=== PATIENT | female | born 1945 | race Caucasian/White ===

== ENCOUNTER 2017-07-06 11:43 | Emergency (ER) | payer OTHER ==
--- OUTSIDE RECORDS SUMMARY | 2017-07-06 11:46 | XMS REPORT ---
:1945 [facility] Address [address] [place] [address] [address]. [address] [place] [address] Care Team Providers Name Role Phone HARRIS BARRERA Unavailable Unavailable Problems This patient has no known problems. Allergies, Adverse Reactions, Alerts This patient has no known allergies or adverse reactions. Medications This patient has no known medications. Results Test Description Test Time Test Comments Text Results Atomic Results Result Comments CULTURE, BLOOD 2016-10-15 06:04:00 er 8 Specimen: BloodCollected: 2016 15:28 Status: Final Last Updated: 10/15/2016 06:04 (1) er 8 Culture Result (Final) (Final) No Growth After 5 Days CULTURE, BLOOD 2016-10-15 06:04:00 er 8 Specimen: BloodCollected: 2016 15:20 Status: Final Last Updated: 10/15/2016 06:04 (1) er 8 Culture Result (Final) (Final) No Growth After 5 Days CULTURE, URINE 2016-10-13 07:13:00 Specimen: Urine SpecimensCollected: 10/10/2016 12:21 Status: Final Last Updated: 10/13/2016 07:13 Culture Result (Final) (Final) No Growth After 48 Hours POTASSIUM 2016-10-12 13:56:00 Test Item Value Reference Range Comments Potassium (test code=K) 4.3 mmol/l 3.5-5.0 [id number] 13:56:00 Test Item Value Reference Range Comments Magnesium (test code=MG) 1.6 mg/dl 1.6-2.3 [id number] 05:45:00 Test Item Value Reference Range Comments Magnesium (test code=MG) 1.4 mg/dl 1.6-2.3 CBC WITH AUTO [id number] 05:40:00 Test Item Value Reference Range Comments WBC (test code=WBC) 9.37 10\\S\\3/ul 4.80-10.80 RBC (test code=RBC) 3.71 10\\S\\6/ul 4.20-5.40 Hemoglobin (test code=HGB) 11.3 gm/dl 12.0-14.0 Hematocrit (test code=HCT) 34.9 % 37.0-47.0 MCV (test code=MCV) 94.1 fL 81.0-99.0 MCH (test code=MCH) 30.5 pg 27.0-31.0 MCHC (test code=MCHC) 32.4 gm/dl 33.0-37.0 RDW (test code=RDWVC) 14.2 % 11.5-14.5 Platelet (test code=PLT) 172 10\\S\\3/ul 130-400 MPV (test code=MPV) 11.9 fL 7.4-10.4 "NOT MEASURED" RESULTS ARE DISPLAYED WHEN THE INSTRUMENT HAS A SUPPRESSED OR UNREPORTABLE RESULT. THIS WILL MOST OFTEN HAPPEN WITH THE MPV WHEN THERE IS AN ABNORMAL PLATLET DISTRIBUTION DUE TO A CRITICAL LOW VALUE OR PLATELET CLUMPING. NE% (test code=NE) 57.7 % 42.0-75.0 LY% (test code=LY) 25.5 % 13.0-42.0 MO% (test code=MO) 14.1 % 4.0-14.0 EO% (test code=EO) 1.8 % 1.0-3.0 BA% (test code=BA) 0.3 % 1.0-3.0 IG% (test code=IG%) 0.6 % 0.0-0.4 CBC AUTO [id number] 05:32:00 Test Item Value Reference Range Comments Glucose (test code=GLU) 144 mg/dl 75-110 BUN (test code=BUN) 11.0 mg/dl 6.0-17.0 Creatinine (test 1.2 mg/dl 0.4-1.2 code=CREA) Sodium (test code=NA) 144 mmol/l 137-145 Potassium (test code=K) 2.9 mmol/l 3.5-5.0 Chloride (test code=CL) 104 mmol/l 98-107 CO2 (test code=CO2) 29 mmol/l 22-30 Calcium (test code=CALC) 7.6 mg/dl 8.4-10.2 T Protein (test code=TP) 6.0 gm/dl 5.1-8.7 Albumin (test code=ALB) 3.2 gm/dl 3.5-4.6 A/G Ratio (test 1.1 % 1.1-2.2 code=AGRAT) AST (SGOT) (test 33 U/L 11-36 code=AST) ALT (SGPT) (test 36 U/L 11-40 code=ALT) Alkaline Phos (test 67 U/L 47-114 code=ALKP) Total Bilirubin (test 1.0 mg/dl 0.2-1.2 code=TBIL) Globulin (test 2.8 gm/dl 2.3-3.5 code=GLOBU) Calcium, Corrected (test 8.2 mg/dl 8.4-10.2 Various formulas exist for code=CALCCORR) corrected serum calcium results, each yielding different values. This corrected result was based on the formula: Corrected Calcium=SerumCalcium + [0.8 * ( 4 - SerumAlbumin)] EGFR if 57 (test code=EGFRAA) mL/min/1.73m\\S\\2 EGFR if Non- 47 Estimated Glomerular [place] (test mL/min/1.73m\\S\\2 Filtration Rate (eGFR) code=EGFRNA) Reference Intervals Decision Points for 18 years and older and average body mass: >=60 Does not exclude kidney disease. 30 - 59 Suggests moderate chronic kidney disease and indicates the need for further investigation including assessment of proteinuria and cardiovascular factors. < 30 Usually indicates a need for referral for assessment and management of chronic kidney failure. Critical values were called to harsha tian by [id number] on 10/12/2016 05:32 AM. Results were read back by harsha tian.[id number] 04:44:00 Test Item Value Reference Range Comments Glucose (test code=GLU) 127 mg/dl 75-110 BUN (test code=BUN) 17.0 mg/dl 6.0-17.0 Creatinine (test 1.6 mg/dl 0.4-1.2 code=CREA) Sodium (test code=NA) 149 mmol/l 137-145 Potassium (test code=K) 4.0 mmol/l 3.5-5.0 Chloride (test code=CL) 106 mmol/l 98-107 CO2 (test code=CO2) 32 mmol/l 22-30 Calcium (test code=CALC) 8.2 mg/dl 8.4-10.2 T Protein (test code=TP) 6.6 gm/dl 5.1-8.7 Albumin (test code=ALB) 3.4 gm/dl 3.5-4.6 A/G Ratio (test 1.1 % 1.1-2.2 code=AGRAT) AST (SGOT) (test 31 U/L 11-36 code=AST) ALT (SGPT) (test 35 U/L 11-40 code=ALT) Alkaline Phos (test 69 U/L 47-114 code=ALKP) Total Bilirubin (test 0.8 mg/dl 0.2-1.2 code=TBIL) Globulin (test 3.2 gm/dl 2.3-3.5 code=GLOBU) Calcium, Corrected (test 8.7 mg/dl 8.4-10.2 Various formulas exist for code=CALCCORR) corrected serum calcium results, each yielding different values. This corrected result was based on the formula: Corrected Calcium=SerumCalcium + [0.8 * ( 4 - SerumAlbumin)] EGFR if 41 (test code=EGFRAA) mL/min/1.73m\\S\\2 EGFR if Non- 34 Estimated Glomerular [place] (test mL/min/1.73m\\S\\2 Filtration Rate (eGFR) code=EGFRNA) Reference Intervals Decision Points for 18 years and older and average body mass: >=60 Does not exclude kidney disease. 30 - 59 Suggests moderate chronic kidney disease and indicates the need for further investigation including assessment of proteinuria and cardiovascular factors. < 30 Usually indicates a need for referral for assessment and management of chronic kidney failure. CBC WITH AUTO [id number] 04:38:00 Test Item Value Reference Range Comments WBC (test code=WBC) 11.63 10\\S\\3/ul 4.80-10.80 RBC (test code=RBC) 3.94 10\\S\\6/ul 4.20-5.40 Hemoglobin (test code=HGB) 11.8 gm/dl 12.0-14.0 Hematocrit (test code=HCT) 38.0 % 37.0-47.0 MCV (test code=MCV) 96.4 fL 81.0-99.0 MCH (test code=MCH) 29.9 pg 27.0-31.0 MCHC (test code=MCHC) 31.1 gm/dl 33.0-37.0 RDW (test code=RDWVC) 14.4 % 11.5-14.5 Platelet (test code=PLT) 221 10\\S\\3/ul 130-400 MPV (test code=MPV) 11.8 fL 7.4-10.4 "NOT MEASURED" RESULTS ARE DISPLAYED WHEN THE INSTRUMENT HAS A SUPPRESSED OR UNREPORTABLE RESULT. THIS WILL MOST OFTEN HAPPEN WITH THE MPV WHEN THERE IS AN ABNORMAL PLATLET DISTRIBUTION DUE TO A CRITICAL LOW VALUE OR PLATELET CLUMPING. NE% (test code=NE) 67.1 % 42.0-75.0 LY% (test code=LY) 17.9 % 13.0-42.0 MO% (test code=MO) 11.3 % 4.0-14.0 EO% (test code=EO) 3.0 % 1.0-3.0 BA% (test code=BA) 0.3 % 1.0-3.0 IG% (test code=IG%) 0.4 % 0.0-0.4 CBC AUTO [id number] 06:41:00 Test Item Value Reference Range Comments Glucose (test code=GLU) 108 mg/dl 75-110 BUN (test code=BUN) 18.0 mg/dl 6.0-17.0 Creatinine (test 1.5 mg/dl 0.4-1.2 code=CREA) Sodium (test code=NA) 148 mmol/l 137-145 Potassium (test code=K) 3.5 mmol/l 3.5-5.0 Chloride (test code=CL) 106 mmol/l 98-107 CO2 (test code=CO2) 32 mmol/l 22-30 Calcium (test code=CALC) 9.3 mg/dl 8.4-10.2 T Protein (test code=TP) 6.3 gm/dl 5.1-8.7 Albumin (test code=ALB) 3.3 gm/dl 3.5-4.6 A/G Ratio (test 1.1 % 1.1-2.2 code=AGRAT) AST (SGOT) (test 35 U/L 11-36 code=AST) ALT (SGPT) (test 38 U/L 11-40 code=ALT) Alkaline Phos (test 62 U/L 47-114 code=ALKP) Total Bilirubin (test 0.8 mg/dl 0.2-1.2 code=TBIL) Globulin (test 3.0 gm/dl 2.3-3.5 code=GLOBU) Calcium, Corrected (test 9.9 mg/dl 8.4-10.2 Various formulas exist for code=CALCCORR) corrected serum calcium results, each yielding different values. This corrected result was based on the formula: Corrected Calcium=SerumCalcium + [0.8 * ( 4 - SerumAlbumin)] EGFR if 44 (test code=EGFRAA) mL/min/1.73m\\S\\2 EGFR if Non- 36 Estimated Glomerular [place] (test mL/min/1.73m\\S\\2 Filtration Rate (eGFR) code=EGFRNA) Reference Intervals Decision Points for 18 years and older and average body mass: >=60 Does not exclude kidney disease. 30 - 59 Suggests moderate chronic kidney disease and indicates the need for further investigation including assessment of proteinuria and cardiovascular factors. < 30 Usually indicates a need for referral for assessment and management of chronic kidney failure. CBC WITH AUTO [id number] 06:03:00 Test Item Value Reference Range Comments WBC (test code=WBC) 10.34 10\\S\\3/ul 4.80-10.80 RBC (test code=RBC) 3.82 10\\S\\6/ul 4.20-5.40 Hemoglobin (test code=HGB) 11.5 gm/dl 12.0-14.0 Hematocrit (test code=HCT) 36.5 % 37.0-47.0 MCV (test code=MCV) 95.5 fL 81.0-99.0 MCH (test code=MCH) 30.1 pg 27.0-31.0 MCHC (test code=MCHC) 31.5 gm/dl 33.0-37.0 RDW (test code=RDWVC) 14.5 % 11.5-14.5 Platelet (test code=PLT) 234 10\\S\\3/ul 130-400 MPV (test code=MPV) 12.0 fL 7.4-10.4 "NOT MEASURED" RESULTS ARE DISPLAYED WHEN THE INSTRUMENT HAS A SUPPRESSED OR UNREPORTABLE RESULT. THIS WILL MOST OFTEN HAPPEN WITH THE MPV WHEN THERE IS AN ABNORMAL PLATLET DISTRIBUTION DUE TO A CRITICAL LOW VALUE OR PLATELET CLUMPING. NE% (test code=NE) 48.6 % 42.0-75.0 LY% (test code=LY) 34.7 % 13.0-42.0 MO% (test code=MO) 11.3 % 4.0-14.0 EO% (test code=EO) 4.4 % 1.0-3.0 BA% (test code=BA) 0.5 % 1.0-3.0 IG% (test code=IG%) 0.5 % 0.0-0.4 URINALYSIS WITH [id number] 14:11:00 Test Item Value Reference Range Comments Color (test code=UCOLR) YELLOW Clarity (test code=UCLAR) CLOUDY Glucose (test code=UGLUC) NEGATIVE NEGATIVE Bilirubin (test code=UBILI) NEGATIVE NEGATIVE Ketones (test code=UKET) NEGATIVE NEGATIVE Specific [place] (test code=USPGR) 1.020 1.005-1.030 Blood (test code=UBLD) LARGE NEGATIVE PH (test code=UPH) 7.0 4.5-8.0 Protein (test code=UPROT) 100 NEGATIVE Urobilinogen (test code=U UROB) 0.2 >0.2 Nitrite (test code=UNITR) NEGATIVE NEGATIVE Leukocyte Esterase (test code=ULEUK) LARGE NEGATIVE WBC (test code=WBCUR) 20-30 0-5 RBC (test code=RBCUR) TNTC 0-5 Epithial Cells (test code=U EPI) 40-50 0-10 Bacteria (test code=UBACT) 2+ None Seen,Trace er [id number] 13:36:00 Test Item Value Reference Range Comments Glucose (test code=GLU) 153 mg/dl 75-110 BUN (test code=BUN) 19.0 mg/dl 6.0-17.0 Creatinine (test 1.5 mg/dl 0.4-1.2 code=CREA) Sodium (test code=NA) 145 mmol/l 137-145 Potassium (test code=K) 3.2 mmol/l 3.5-5.0 Chloride (test code=CL) 104 mmol/l 98-107 CO2 (test code=CO2) 25 mmol/l 22-30 Calcium (test code=CALC) 10.5 mg/dl 8.4-10.2 T Protein (test code=TP) 7.6 gm/dl 5.1-8.7 Albumin (test code=ALB) 4.1 gm/dl 3.5-4.6 A/G Ratio (test 1.2 % 1.1-2.2 code=AGRAT) AST (SGOT) (test 43 U/L 11-36 code=AST) ALT (SGPT) (test 40 U/L 11-40 code=ALT) Alkaline Phos (test 82 U/L 47-114 code=ALKP) Total Bilirubin (test 1.3 mg/dl 0.2-1.2 code=TBIL) Globulin (test 3.5 gm/dl 2.3-3.5 code=GLOBU) Calcium, Corrected (test 10.4 mg/dl 8.4-10.2 Various formulas exist for code=CALCCORR) corrected serum calcium results, each yielding different values. This corrected result was based on the formula: Corrected Calcium=SerumCalcium + [0.8 * ( 4 - SerumAlbumin)] EGFR if 44 (test code=EGFRAA) mL/min/1.73m\\S\\2 EGFR if Non- 36 Estimated Glomerular [place] (test mL/min/1.73m\\S\\2 Filtration Rate (eGFR) code=EGFRNA) Reference Intervals Decision Points for 18 years and older and average body mass: >=60 Does not exclude kidney disease. 30 - 59 Suggests moderate chronic kidney disease and indicates the need for further investigation including assessment of proteinuria and cardiovascular factors. < 30 Usually indicates a need for referral for assessment and management of chronic kidney failure. er 8CBC WITH AUTO [id number] 13:20:00 Test Item Value Reference Range Comments WBC (test code=WBC) 12.64 10\\S\\3/ul 4.80-10.80 RBC (test code=RBC) 4.14 10\\S\\6/ul 4.20-5.40 Hemoglobin (test code=HGB) 12.5 gm/dl 12.0-14.0 Hematocrit (test code=HCT) 38.3 % 37.0-47.0 MCV (test code=MCV) 92.5 fL 81.0-99.0 MCH (test code=MCH) 30.2 pg 27.0-31.0 MCHC (test code=MCHC) 32.6 gm/dl 33.0-37.0 RDW (test code=RDWVC) 14.2 % 11.5-14.5 Platelet (test code=PLT) 261 10\\S\\3/ul 130-400 MPV (test code=MPV) 12.4 fL 7.4-10.4 "NOT MEASURED" RESULTS ARE DISPLAYED WHEN THE INSTRUMENT HAS A SUPPRESSED OR UNREPORTABLE RESULT. THIS WILL MOST OFTEN HAPPEN WITH THE MPV WHEN THERE IS AN ABNORMAL PLATLET DISTRIBUTION DUE TO A CRITICAL LOW VALUE OR PLATELET CLUMPING. NE% (test code=NE) 72.4 % 42.0-75.0 LY% (test code=LY) 18.1 % 13.0-42.0 MO% (test code=MO) 7.4 % 4.0-14.0 EO% (test code=EO) 1.1 % 1.0-3.0 BA% (test code=BA) 0.5 % 1.0-3.0 IG% (test code=IG%) 0.5 % 0.0-0.4 er 8
[2017-07-06] MEDS ORDERED: ONDANSETRON 4 MG/2 ML VIAL ONE (12:52)
[2017-07-06] MEDS ORDERED: NA CHLORIDE 0.9% 1,000 ML ONE (12:52)
[2017-07-06 12:59] LABS: Absolute Lymphocytes (CBC) 2.8 K/uL (0.7-4.9); Absolute Monocytes 1.1 K/uL (0.1-1.3); Absolute Neutrophil 7.2 K/uL (1.8-8.0); Basophils % 0.6 % (0-1.3); Eosinophils % 1.8 % (0-4.4); Hematocrit 38.6 % (36.0-45.0); Lymphocytes % 24.9 % (15.3-44.8); MCH 29.5 pg (27.0-35.0); MCV 90.6 fL (80-100); MPV 8.7 fL (7.6-11.3); Monocytes % 9.4 % (3.3-12.3); RBC Red Blood Cell Count 4.26 M/uL (3.86-4.86)
--- NOTE | 2017-07-06 13:05 | RAD REPORT ---
EXAM DESCRIPTION: RAD - Knee Left 3 View - 07/06/2017 12:35 pm CLINICAL HISTORY: Left knee pain FINDINGS: There probably is small joint effusion. The bones are osteoporotic. 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 The patellofemoral compartment is involved. There is an equivocal vague a density withi the intercondylar notch. This may represent a loose body of indeterminate age. If the patient has clinical symptoms to suggest an occult fracture, ligamentous or meniscal injury th en MRI would be recommended
[2017-07-06 13:08] LABS: Albumin 3.3 g/dL (3.2-5.5); Bilirubin Direct 0.2 mg/dL (0-0.2); Bilirubin Total 1.2 mg/dL (0.3-1.2); Protein, Total 7.7 g/dL (6.0-8.3)
[2017-07-06 13:08] LABS: Urine Blood 1+ (NEG); Urine Glucose NEGATIVE (NEG); Urine Protein 2+ (NEG); Urine Specific Gravity 1.025 (1.005-1.030)
[2017-07-06 13:08] LABS: Urine RBC <5 /HPF (NONE SEEN)
[2017-07-06 13:09] LABS: Urine Bacteria >50 /HPF (<20); Urine Culture Reflex Order REFLEXED; Urine Mucus 1+ /HPF (NONE SEEN)
--- NOTE | 2017-07-06 13:31 | RAD REPORT ---
EXAM DESCRIPTION: CT - Stone Protocol - 07/06/2017 1:17 pm CLINICAL HISTORY: Abdominal pain, flank pain COMPARISON: CT study July 2016 TECHNIQUE: Axial 5 mm thick images were obtained without oral or IV contrast. The [id number] span s the entirety of the system including uppermost abdomen and lung bases. All CT scans are performed using dose optimization technique as appropriate and may include automated exposure control or mA/KV adjustment according to patient size. FINDINGS: No hydronephrosis present. No obstructing calculi identifiable. Both kidneys show multiple 2-5 mm nonobstructing caliceal calculi. In the anterior mid right kidney a 2.3 centimeter oval low-d ensity mass is present matching up with a cyst seen on the prior study. No suspicious renal masses. I sodense masses and pyelonephritis are not excluded on a stone protocol CT scan. Urinary bladder is co ntracted limiting assessment. Bladder calculi not suspected. Uterus and ovaries show no suspicious fi ndings. Liver is abnormal in appearance with a prominent nodular contour. No focal liver lesions seen on nonc ontrast imaging. This serosa is or diffuse hepatic parenchymal disease pattern is similar to the July 2016 study. No spleen or pancreas acute finding. Cholecystectomy clips are present. No biliary tree dilatation. No significant adrenal finding. No acute bowel findings. No appendicitis. No hernia, mass or bulky lymphadenopathy noted. No free air, free fluid or inflammatory stranding. Disc and bony degenerative changes are present. No pathologic bone process seen. Old rib trauma noted posterior lower right ribcage. IMPRESSION: No hydronephrosis or obstructing calculus. No acute finding identifiable. Patient has bilateral lung nonobstructing calculi. Isodense masses and pyelonephritis are not excluded on stone protocol technique. Cirrhosis or diffuse hepatic parenchymal disease changes to the liver. No focal liver lesions seen on noncontrast imaging.
[2017-07-06] MEDS ORDERED: POTASSIUM CL SA 10 MEQ TAB PO ONE (14:04)
--- NOTE | 2017-07-06 14:11 | EDPHYS ---
Physician Documentation [facility] Name: Betzaida Qureshi Age: 71 yrs Sex: Female : 1945 Arrival Date: 07/06/2017 Time: 11:46 Bed 14 Private MD: Tyrone Medina ED Physician Edgardo Matt HPI: 07/06 11:59 This 71 yrs old Female presents to ER via Wheelchair with complaints of Knee kav swelling. 12:18 The patient presents with pain, that is acute, swelling. The complaints affect the left kav knee. Context: The problem was sustained at an unknown site, resulted from an unknown cause, the patient can partially bear weight. Onset: The symptoms/episode began/occurred acutely, 3 day(s) ago. Modifying factors: The symptoms are alleviated by nothing. the symptoms are aggravated by movement. Associated signs and symptoms: Pertinent positives: swelling, of the left leg and left knee, Pertinent negatives calf tenderness, numbness, tingling, warmth, weakness. Treatment prior to arrival includes: no previous treatment. Severity of symptoms: At their worst the symptoms were moderate, just prior to arrival. The patient has not experienced similar symptoms in the past. The patient has been recently seen by a physician: the patient's primary care provider. patient c/o acute onset of left knee pain from an unknown cause. reports using a cane at home to ambulate. also c/o bilateral flank pain x 3 days. pmhx: kidney stones. Historical: - Allergies: 11:54 PENICILLINS; aj 11:54 Tetanus Vaccines \T\ Toxoid; aj 11:54 Tracy; aj - Home Meds: 11:54 amlodipine 10 mg tab 1 tab once daily [Active]; metoprolol tartrate 50 mg Oral tab once aj daily [Active]; gabapentin 300 mg oral cap 1 cap 3 times per day [Active]; glipizide 5 mg Oral tab 1 tab once daily [Active]; lovastatin 40 mg Oral tab 1 tab once daily [Active]; losartan 100 mg oral tab 1 tab once daily [Active]; - PMHx: 11:54 Hyperlipidemia; Diabetes - NIDDM; aj - Immunization history:: Adult Immunizations up to date. - Social history:: Smoking status: Patient/guardian denies using tobacco. - Family history:: not pertinent. - Ebola Screening: : No symptoms or risks identified at this time. - Hospitalizations: : No recent hospitalization is reported. - History obtained from: . ROS: 12:18 Constitutional: Negative for fever, chills, and weight loss, Eyes: Negative for injury, kav pain, redness, and discharge, ENT: Negative for injury, pain, and discharge, Neck: Negative for injury, pain, and swelling, Cardiovascular: Negative for chest pain, palpitations, and edema, Respiratory: Negative for shortness of breath, cough, wheezing, and pleuritic chest pain, Abdomen/GI: Negative for abdominal pain, nausea, vomiting, diarrhea, and constipation, Back: Negative for injury and pain, Skin: Negative for injury, rash, and discoloration, Neuro: Negative for headache, weakness, numbness, tingling, and seizure, Psych: Negative for depression, anxiety, suicide ideation, homicidal ideation, and hallucinations, Allergy/Immunology: Negative for hives, rash, and allergies, Endocrine: Negative for neck swelling, polydipsia, polyuria, polyphagia, and marked weight changes, Hematologic/Lymphatic: Negative for swollen nodes, abnormal bleeding, and unusual bruising. 12:18 : Positive for flank pain, Negative for urinary symptoms, hematuria, pelvic pain, burning with urination, difficulty urinating, bladder incontinence, foul smelling urine, vaginal bleeding, vaginal discharge, vaginal itching. 12:18 MS/extremity: Positive for pain, of the left leg and left knee. Exam: 12:18 Constitutional: This is a well developed, well nourished patient who is awake, alert, kav and in no acute distress. Head/Face: Normocephalic, atraumatic. Eyes: Pupils equal round and reactive to light, extra-ocular motions intact. Lids and lashes normal. Conjunctiva and sclera are non-icteric and not injected. Cornea within normal limits. Periorbital areas with no swelling, redness, or edema. ENT: Nares patent. No nasal discharge, no septal abnormalities noted. Tympanic membranes are normal and external auditory canals are clear. Oropharynx with no redness, swelling, or masses, exudates, or evidence of obstruction, uvula midline. Mucous membranes moist. Neck: Trachea midline, no thyromegaly or masses palpated, and no cervical lymphadenopathy. Supple, full range of motion without nuchal rigidity, or vertebral point tenderness. No Meningismus. Chest/axilla: Normal chest wall appearance and motion. Nontender with no deformity. No lesions are appreciated. Cardiovascular: Regular rate and rhythm with a normal S1 and S2. No gallops, murmurs, or rubs. Normal PMI, no JVD. No pulse deficits. Respiratory: Lungs have equal breath sounds bilaterally, clear to auscultation and percussion. No rales, rhonchi or wheezes noted. No increased work of breathing, no retractions or nasal flaring. Abdomen/GI: Soft, non-tender, with normal bowel sounds. No distension or tympany. No guarding or rebound. No evidence of tenderness throughout. Back: No spinal tenderness. No costovertebral tenderness. Full range of motion. Skin: Warm, dry with normal turgor. Normal color with no rashes, no lesions, and no evidence of cellulitis. Neuro: Awake and alert, GCS 15, oriented to person, place, time, and situation. Cranial nerves II-XII grossly intact. Motor strength 5/5 in all extremities. Sensory grossly intact. Cerebellar exam normal. Normal gait. Psych: Awake, alert, with orientation to person, place and time. Behavior, mood, and affect are within normal limits. 12:18 : CVA tenderness, that is mild, Bladder: is normal. 12:18 Musculoskeletal/extremity: Extremities: noted in the left leg and left knee: pain, ROM: limited active range of motion, limited passive range of motion, in the left knee, Circulation is intact in all extremities. Pulses: are normal with no appreciated deficits, noted to be 2+ in the , the left knee Sensation intact. Joints: the left knee displays painful range of motion, Weight bearing: can bear weight with assistance only, uses cane, Tendon exam: specific tendon testing normal through active and passive range of motion DVT Exam: No signs of deep vein thrombosis. no swelling, no tenderness, negative Homans' sign noted on exam, no appreciated bluish discoloration, no erythema, no increased warmth, pain, that is mild, of the left leg, of the left leg and left knee. Vital Signs: 11:54 BP 112 / 66; Pulse 70; Resp 19; Temp 97.5; Pulse Ox 98% on R/A; Weight 95.25 kg; Height 5 ft. 5 in. (165.10 cm); 14:20 BP 184 / 79; Pulse 65; Resp 16; Pulse Ox 98% ; jl7 11:54 Body Mass Index 34.95 (95.25 kg, 165.10 cm) MDM: 11:57 Medical screening is not applicable. [facility] 12:18 Data reviewed: vital signs, nurses notes. 14:08 Data reviewed: lab test result(s), radiologic studies, CT scan. 07/06 12:18 Order name: Amylase, Serum; Complete Time: 13:55 07/06 13:56 Interpretation: Within normal limits. 07/06 12:18 Order name: Basic Metabolic Panel; Complete Time: 13:55 [facility] 07/06 13:56 Interpretation: CRE 1.08; GFR 50; K 3.0; NA 138; CL 98. 07/06 12:18 Order name: CBC with Diff; Complete Time: 13:09 07/06 13:09 Interpretation: WBC 11.3; PLT 407. 07/06 12:18 Order name: Creatinine for Radiology; Complete Time: 13:10 07/06 13:10 Interpretation: Normal except: CRE 1.05; GFR 52. 07/06 12:18 Order name: Hepatic Function; Complete Time: 13:55 [facility] 07/06 13:56 Interpretation: Normal except: GLOB 4.4; A/G 0.8. 07/06 12:18 Order name: Lipase; Complete Time: 13:55 [facility] 07/06 13:10 Interpretation: LIP 20. 07/06 12:18 Order name: Urine Microscopic Only; Complete Time: 13:55 [facility] 07/06 13:57 Interpretation: Normal except: UWBC 5-10; SQEPI 5-10; UBACT >50. 07/06 12:18 Order name: Knee Left 3 View XRAY; Complete Time: 13:07 07/06 13:10 Interpretation: No acute disease except: Osteoporsis. 07/06 12:50 Order name: Urine Dipstick--Ancillary (enter results); Complete Time: 13:55 aa 07/06 13:58 Interpretation: UBLD 1+; U NIT POSITIVE; UESTR TRACE. 07/06 12:59 Order name: CT Stone Protocol; Complete Time: 13:53 ka 07/06 13:55 Interpretation: No acute disease except: Bilateral non-obstructive calculi. [facility] 07/06 13:10 Order name: Urine Culture [facility] 07/06 12:18 Order name: IV Saline Lock; Complete Time: 13:29 kav 07/06 12:18 Order name: Labs collected and sent; Complete Time: 13:29 ka 07/06 12:18 Order name: Urine Dipstick-Ancillary (obtain specimen); Complete Time: 12:48 kav Administered Medications: 13:40 Drug: NS 0.9% 1000 ml Route: IV; Rate: 75 ml/hr; Site: right antecubital; ae1 14:11 Follow up: Response: No adverse reaction; IV Status: IV converted to saline lock jl7 14:10 Drug: Potassium Chloride 40 mEq Route: PO; jl7 14:12 Follow up: Response: Medication administered at discharge. jl7 14:11 Not Given (Patient Refused): Zofran 4 mg IVP once; over 2 minutes jl7 Disposition: 22:10 Co-signature as Attending Physician, Edgardo Matt MD I agree with the assessment and kdr plan of care. Disposition: 07/06/17 14:10 Discharged to Home. Impression: Calculus of kidney, Hypokalemia, Urinary tract infection, site not specified. - Condition is Stable. - Discharge Instructions: Kidney Stones, Urinary Tract Infection, [id number], Antibiotic Use, [id number]. - Prescriptions for Macrobid 100 mg Oral Capsule - take 1 capsule by ORAL route every 12 hours for 10 days; 20 capsule. Ultracet 37.5- 325 mg Oral Tablet - take 1 tablet by ORAL route every 6 hours - for up to 5 days; do not exceed 8 tablets per day.; 30 tablet. - Medication Reconciliation Form, Thank You Letter, Antibiotic Education, Prescription Opioid Use form. - Follow up: Tyrone Medina MD; When: 2 - 3 days; Reason: Recheck today's complaints, Continuance of care, Re-evaluation by your physician. - Problem is new. - Symptoms have improved. - Notes: f/u with dr. pelletier for referral to orthopaedics for further evaluation and treatment of left knee and f/u with urology for non-obstructing calculus of kidney Signatures: Dispatcher [employer] EDSara Sanchez RN RN Edgardo John MD MD kdr Vern, Katherine, IT PROGRAMMER IT PROGRAMMER Zaheer Mcdonnell RN RN ae1 Helena Almaguer RN RN jl7 Corrections: (The following items were deleted from the chart) 13:09 13:09 Normal except: WBC 11.3; PLT 407. kav kav 13:10 13:10 Abnormal: CRE 1.05; GFR 52. kav kav 13:56 13:55 CRE 1.08; GFR 50. kav kav 13:56 13:56 CRE 1.08; GFR 50; K 3.0; NA 138. kav kav 13:57 13:10 Abnormal: LIP 20. kav kav 14:29 14:10 07/06/2017 14:10 Discharged to Home. Impression: Calculus of kidney; Hypokalemia; jl7 Urinary tract infection, site not specified. Condition is Stable. Forms are Medication Reconciliation Form, Thank You Letter, Antibiotic Education, Prescription Opioid Use. Follow up: Tyrone Medina; When: 2 - 3 days; Reason: Recheck today's complaints, Continuance of care, Re-evaluation by your physician. Problem is new. Symptoms have improved. kav
--- NOTE | 2017-07-06 14:11 | ER ---
Nurse's Notes [facility] Name: Betzaida Qureshi Age: 71 yrs Sex: Female : 1945 Arrival Date: 07/06/2017 Time: 11:46 Bed 14 Private MD: Tyrone Medina Diagnosis: Calculus of kidney;Hypokalemia;Urinary tract infection, site not specified Presentation: 07/06 11:50 Presenting complaint: Patient states: Left knee pain and swelling since yesterday. aj Patient was going to get outpatient labs drawn and CT done, but came to ER instead. Transition of care: patient was not received from another setting of care. Onset of symptoms was July 06, 2017. Risk Assessment: Do you want to hurt yourself or someone else? Patient reports no desire to harm self or others. Care prior to arrival: None. 11:50 Method Of Arrival: Wheelchair aj 11:50 Acuity: MAKAYLA 4 aj 14:28 Initial Sepsis Screen: Does the patient meet any 2 criteria? No. Patient's initial jl7 sepsis screen is negative. Does the patient have a suspected source of infection? No. Patient's initial sepsis screen is negative. Triage Assessment: 11:54 General: Appears in no apparent distress. comfortable, Behavior is calm, cooperative, aj appropriate for age. Pain: Complains of pain in left knee. Neuro: Level of Consciousness is awake, alert, obeys commands, Oriented to person, place, time, situation, Appropriate for age. Respiratory: Airway is patent Respiratory effort is even, unlabored, Respiratory pattern is regular, symmetrical. Derm: Skin is intact, is healthy with good turgor, Skin is pink, warm \\T\\ dry. normal. Historical: - Allergies: 11:54 PENICILLINS; aj 11:54 Tetanus Vaccines \\T\\ Toxoid; aj 11:54 Tracy; aj - Home Meds: 11:54 amlodipine 10 mg tab 1 tab once daily [Active]; metoprolol tartrate 50 mg Oral tab once aj daily [Active]; gabapentin 300 mg oral cap 1 cap 3 times per day [Active]; glipizide 5 mg Oral tab 1 tab once daily [Active]; lovastatin 40 mg Oral tab 1 tab once daily [Active]; losartan 100 mg oral tab 1 tab once daily [Active]; - PMHx: 11:54 Hyperlipidemia; Diabetes - NIDDM; aj - Immunization history:: Adult Immunizations up to date. - Social history:: Smoking status: Patient/guardian denies using tobacco. - Family history:: not pertinent. - Ebola Screening: : No symptoms or risks identified at this time. - Hospitalizations: : No recent hospitalization is reported. - History obtained from: . Screenin:30 Abuse screen: Denies threats or abuse. Denies injuries from another. Nutritional jl7 screening: No deficits noted. Tuberculosis screening: No symptoms or risk factors identified. Fall Risk Fall in past 12 months (25 points). No secondary diagnosis (0 pts). IV access (20 points). Ambulatory Aid- Crutches/Cane/Walker (15 pts). Gait- Impaired (20 pts.). Mental Status- Oriented to own ability (0 pts). Total Robin Fall Scale indicates High Risk Score (45 or more points). Fall prevention measures have been instituted. Side Rails Up X 2 Placed Close to Nursing Station Frequent Obs/Assessments Occuring Family Present and informed to notify staff if the need to leave the bedside As available patient and family educated on Fall Prevention Program and Strategies. Assessment: 12:15 General: Appears in no apparent distress. uncomfortable, Behavior is calm, cooperative, jl7 Pt states "I was having back pain [address] Mccarthy ordered for me to have some blood work, urine and a CT. I'm not having any back pain now though.". Pain: Complains of pain in left knee Pain currently is 2 out of 10 on a pain scale. Neuro: Level of Consciousness is awake, alert, obeys commands, Oriented to person, place, time. Cardiovascular: Patient's skin is warm and dry. Respiratory: Airway is patent Respiratory effort is even, unlabored, Respiratory pattern is regular, symmetrical. GI: Reports nausea, Patient currently denies constipation, diarrhea, vomiting. : No signs and/or symptoms were reported regarding the genitourinary system. EENT: No signs and/or symptoms were reported regarding the EENT system. Derm: Skin is pink, warm \\T\\ dry. Musculoskeletal: Range of motion: limited in left knee Swelling present in left knee. 13:00 Reassessment: No changes from previously documented assessment. Patient and/or family jl7 updated on plan of care and expected duration. Pain level reassessed. Patient is alert, oriented x 3, equal unlabored respirations, skin warm/dry/pink. 14:00 Reassessment: Provider at bedside discussing plan of care. jl7 Vital Signs: 11:54 BP 112 / 66; Pulse 70; Resp 19; Temp 97.5; Pulse Ox 98% on R/A; Weight 95.25 kg; Height aj 5 ft. 5 in. (165.10 cm); 14:20 BP 184 / 79; Pulse 65; Resp 16; Pulse Ox 98% ; jl7 11:54 Body Mass Index 34.95 (95.25 kg, 165.10 cm) aj ED Course: 11:46 Patient arrived in ED. mr 11:47 Tyrone Medina MD is Private Physician. mr 11:50 Triage completed. aj 11:54 Arm band placed on right wrist. Patient placed in an exam room. aj 11:56 Sara Weiss, RN is Primary Nurse. aj 11:57 [facility]ank[facility] Calero F[facility] kav 11:57 Edgardo Matt MD is Attending Physician. kav 12:07 Helena Almaguer, SHERRIE is Primary Nurse. jl7 12:30 Patient has correct armband on for positive identification. Placed in gown. Bed in low jl7 position. Call light in reach. Side rails up X 1. Pulse ox on. NIBP on. Warm blanket given. 12:34 Knee Left 3 View XRAY In Process Unspecified. EDMS 12:42 X-ray completed. Portable x-ray completed in exam room. Patient tolerated procedure sw well. 12:45 Initial lab(s) drawn, by me, sent to lab. Inserted saline lock: 20 gauge in right aa5 antecubital area, using aseptic technique. Blood collected. 12:45 Urine collected: clean catch specimen, cloudy, matty colored. aa5 13:[address] 2 13:15 [address] completed. Patient tolerated procedure well. Patient moved back from CT. 2 13:17 CT Stone Protocol In Process Unspecified. EDMS 14:08 Tyrone Medina MD is Referral Physician. kav 14:27 No provider procedures requiring assistance completed. IV discontinued, intact, jl7 bleeding controlled, No redness/swelling at site. Pressure dressing applied. Administered Medications: 13:40 Drug: NS 0.9% 1000 ml Route: IV; Rate: 75 ml/hr; Site: right antecubital; ae1 14:11 Follow up: Response: No adverse reaction; IV Status: IV converted to saline lock 7 14:10 Drug: Potassium Chloride 40 mEq Route: PO; jl7 14:12 Follow up: Response: Medication administered at discharge. 7 14:11 Not Given (Patient Refused): Zofran 4 mg IVP once; over 2 minutes jl7 Outcome: 14:10 Discharge ordered by MD. thomson 14:27 Discharged to home via wheelchair. 7 14:27 Condition: stable 14:27 Discharge instructions given to patient, family, Instructed on discharge instructions, follow up and referral plans. medication usage, Demonstrated understanding of instructions, follow-up care, medications, Prescriptions given X 2. 14:29 Patient left the ED. 7 Signatures: Dispatcher [employer] EDMS Sara Weiss RN RN Janki Hill, SENIOR DENTIST SENIOR DENTIST Marietta Haddad mr France Betancur, RN RN aa5 Rosalba Wilson Andrea, RN RN ae1 Helena Almaguer RN RN jl7 Salome Keller 2 Corrections: (The following items were deleted from the chart) 11:54 11:50 Presenting complaint: Patient states: Left knee pain and swelling since aj yesterday. aj
== END 2017-07-06 14:29 | disposition home or self-care (01) ==
LOC: ER 11:43
DX: N20.0 Calculus of kidney (principal); N39.0 Urinary tract infection, site not specified; E87.6 Hypokalemia; E11.9 Type 2 diabetes mellitus without complications; Z88.0 Allergy status to penicillin; Z88.7 Allergy status to serum and vaccine; Z88.8 Allergy status to other drugs, medicaments and biological substances
CPT/HCPCS: 36415; 73562; 74176; 76377; 80048; 80076; 82150; 83690; 85025; 87086; 87088; J2405; J7030; 81003; 81015; 96360; 99284